=== PATIENT | female | born 1940 | race Caucasian/White ===

== ENCOUNTER → 2017-11-16 | Outpatient (CLI) | payer MEDICARE, OTHER ==
[~2017-11-16] MED LIST: Gas-X125 MG PO; IMODIUM MULTI-1 EAC1 PO; Multiple Vitam1 EAC1 PO; PROP30DR; TRAZ50 PO; Tylenol325 MG PO; UNITHROID PO; VITAMIN D31000 UNIT PO; ZESTRIL40 MG PO
== END | disposition home or self-care (01) ==
LOC: LAB SHORT 10:57 → PLD 10:57
DX: L72.0 Epidermal cyst (principal)
CPT/HCPCS: 88304